=== PATIENT | female | born 1985 | race Caucasian/White ===

== ENCOUNTER 2017-02-11 23:58 | Emergency (ER) | payer BC ==
--- NOTE | 2017-02-12 01:40 | ED ORDER SUMMARY ---
..... Patient: NITISH GRACE OrderSheet [facility] VisitID: [id number] [address] [place] [address] 31y, F Registration Date/Time: 02/11/2017 ORDER SHEET Weight: 104.3 kg (stated) Allergies: Penicillin GENERAL ORDERS: MEDICATION ORDERS: Bactrim DS PO (Tablet 800-160 mg) 2 tabs (NOW) (:02/12/2017 Du HARRIS) (Ack 1:40 JDeElena R.N.) (1:42 JDeElena R.N.) Tylenol PO 650 mg (NOW) (:02/12/2017 Du HARRIS) (Ack 1:40 JDeElena R.N.) (1:42 JDeElena R.N.) IV FLUIDS: ORDER SHEET NOTES: [Electronically signed by Rica Gillespie (04:31 02/12/2017)] [Electronically signed by Kaiser Hill MD (23:39 02/14/2017)] [Electronically locked/signed by Rica Gillespie (04:02/12/2017)]
--- NOTE | 2017-02-12 01:40 | ED NURSING NOTES ---
Clinical Report - Nurses [facility] [address] [place] [address] 02/11/2017 23:59 [id number] Triage time 00:Feb 12 2017. Acuity: LEVEL 4. Chief Complaint: Location of symptoms- left 5th toe. SEPSIS SCREEN: Sepsis Screen: negative. Infection suspected/documented. DARIO COMA SCORE: [place] Coma Scale: 15- eyes open spontaneously (4); best verbal response- oriented x 4 (5); best motor response- obeys commands (6). --00:20 Rica Gillespie 00:16 02/12/17. BP: 119/63. HR: 84. RR: 18. O2 saturation: 100% on room air. Temp: 99.1 F (oral). Pain level now: 510. --00:20 Rica Gillespie. Weight: 104.3 kg stated. Height/Length: 63 inches Per Patient. BMI: 40.7. --00:17 Rica Gillespie. Medications Control Pills. --00:17 Rica Gillespie. Medication/allergy information source: the patient. --00:20 Rica Gillespie. Allergies Penicillin. --00:17 Rica Gillespie. History Arrived by private vehicle. Historian: patient. Unaccompanied. Primary physician (Carlos barnett). No injury occurred. This occurred today. ( Patient reports while she was walking around today she began having pain in her left 5th toe. She states when she got home today she looked at it and it was swollen, red and painful. She states she picked at the toenail earlier this week. She noticed a red line leaving the toe and traveling up her foot so she came in to be seen.). PAST MEDICAL HX: Tetanus status: unknown. Immunizations: up-to-date. Last normal menstrual period- 2 weeks ago. SOCIAL HX: Never smoker. Occasional alcohol use. No drug use. No infectious disease exposure. FALL RISK ASSESSMENT: Fall risk assessment completed. No fall risk identified. NUTRITIONAL RISK ASSESSMENT: The nutritional risk assessment revealed no deficiencies. FUNCTIONAL ASSESSMENT: Functional assessment: no impairments noted. LEARNING NEEDS ASSESSMENT: The learning needs assessment revealed no barriers. SKIN INTEGRITY ASSESSMENT: Skin integrity risk assessment completed. No skin integrity risk identified. --00:20 Rica Gillespie. PROBLEMS: Sleep Apnea. Gastroesophageal Reflux Disease. --00:17 Rica Gillespie. ADDITIONAL SURGERIES: Cholecystectomy. Right foot surgery . --00: Rica Gillespie. Interventions ID band on patient. To treatment room. --00:20 Rica Gillespie. PHYSICAL ASSESSMENT GENERAL / NEURO / PSYCH: Oriented X 4. Alert. Appears in no acute distress. EXTREMITIES: Extremity pulses are within normal limits. Extremities exhibit normal ROM. No lower extremity edema. Left foot: tenderness, swelling and erythema of the fifth toe. Limited weight bearing secondary to pain. SKIN: Skin intact. Skin is warm and dry. --00: Rica Gillespie. NURSING PROGRESS NOTES 00:21 02/12/17. Extremity elevated. Reassurance given to the patient. Two patient identifiers checked. Call light placed in reach. Side rails up x 1. Bed placed in lowest position. Brakes of bed on. Patient ready for evaluation- chart flagged and ED physician notified. --00: Rica Gillespie 01:42 02/12/2017 Bactrim DS (Sulfamethoxazole-TMP DS) PO Tablets 2 tab given. Allergies verified and confirmed 5 rights. --01:42 Tavo Fontenot R.N. 01:42 02/12/2017 Tylenol (Acetaminophen) PO Tablets 650 mg given. Allergies verified and confirmed 5 rights. --01:42 Tavo Fontenot R.N. DISPOSITION / DISCHARGE 02:32 02/12/17. No learning barriers present. Discharge instructions provided and reviewed with the patient. Reviewed medication(s). Treatments reviewed. Patient verbalized understanding. Written instructions provided in [place]. The patient was discharged home. She left the Emergency Department ambulatory and via private vehicle. Patient driving. --02:32 Kiana Caban R.N. 02:31 02/12/17. BP: 108/58. HR: 68. RR: 16. O2 saturation: 98%. Temp: deferred. Pain level now: 0/10. --02:32 Kiana Caban R.N. Locked/Released at 02/12/2017 4:31 by Rica Gillespie,
--- NOTE | 2017-02-12 01:40 | ED ORDER SUMMARY ---
..... Patient: NITISH GRACE OrderSheet [facility] VisitID: [id number] [address] [place] [address] 31y, F Registration Date/Time: 02/11/2017 ORDER SHEET Weight: 104.3 kg (stated) Allergies: Penicillin GENERAL ORDERS: MEDICATION ORDERS: Bactrim DS PO (Tablet 800-160 mg) 2 tabs (NOW) (:02/12/2017 Du HARRIS) (Ack 1:40 JDeElena R.N.) (1:42 JDeElena R.N.) Tylenol PO 650 mg (NOW) (:02/12/2017 Du HARRIS) (Ack 1:40 JDeElena R.N.) (1:42 JDeElena R.N.) IV FLUIDS: ORDER SHEET NOTES: [Electronically signed by Rica Gillespie (04:31 02/12/2017)] [Electronically signed by Kaiser Hill MD (23:39 02/14/2017)] [Electronically locked/signed by Rica Gillespie (04:02/12/2017)]
--- NOTE | 2017-02-12 01:40 | ED CLINICAL REPORT ---
Clinical Report - Physicians/Mid Levels [facility] [address] [place] [address] 02/11/2017 23:59 [id number] Time Seen: 01:07 Feb 12 2017. Arrived- By private vehicle. Historian- patient. HISTORY OF PRESENT ILLNESS Chief Complaint: LOWER EXTREMITY PAIN and SWELLING. Severity is described as being moderate. The quality is noted to be sharp, aching and "pain". This started yesterday and is still present (( Patient reports while she was walking around today she began having pain in her left 5th toe. She states when she got home today she looked at it and it was swollen, red and painful. She states she picked at the toenail earlier this week. She noticed a red line leaving the toe and traveling up her foot so she came in to be seen.).). Symptoms located in the area of the left foot. The patient has had redness and swelling. She has had difficulty walking. No bladder dysfunction, bowel dysfunction, sensory loss or motor loss. Patient notes the possibility of an injury. Mechanism of injury- (cut toenail.). Similar symptoms previously: None. Recent medical care: Not recently seen/assessed. REVIEW OF SYSTEMS No cough, chest pain, fever, enlarged lymph nodes or sore throat. No abdominal pain or vomiting. She has had skin rash. PAST HISTORY See nurses notes. ( Sleep Apnea. Gastroesophageal Reflux Disease. ADDITIONAL SURGERIES: Cholecystectomy. Right foot surgery .). Medications: Control Pills. Allergies: Penicillin. SOCIAL HISTORY Never smoker. Occasional alcohol use. No drug use. ADDITIONAL NOTES The nursing notes have been reviewed. PHYSICAL EXAM Vital Signs: 02/12/2017 00:16 BP: 119/63. HR: 84. RR: 18. O2 saturation: 100%. Temp: 99.1 F. Pain level now: 5/10. Appearance: Alert. Patient in mild distress. CVS: Normal heart rate and rhythm. Heart sounds normal. No cardiac murmur. Respiratory: No respiratory distress. Skin: Skin intact. Skin warm. Extremities: Left foot: moderate erythema and tenderness and mild swelling of the fifth toe. Limited weight bearing secondary to pain. Neurovascular intact distally. Neuro: Oriented X 3. No motor deficit. No sensory deficit. PROGRESS AND PROCEDURES PROCEDURES (Paronychia released with 18g needle.Moderate purulent material drained.). Patient/family counseled. Disposition: Discharged. Condition: stable and improved. CLINICAL IMPRESSION Paronychia left 5th toe. Acute lymphangitis left foot. INSTRUCTIONS Warm soaks to affected area (3-6 times daily for 15-20 minutes at a time) for one weeks until better; (twice a day.). Protect wound and keep wound area clean. Change dressing twice daily. Soak in warm soapy water twice daily. Apply neosporin twice daily. Warnings: Further evaluation is necessary. GENERAL WARNINGS: Return or contact your physician immediately if your condition worsens or changes unexpectedly, if not improving as expected, or if other problems arise. Your Current Medications: CONTINUE TAKING THE FOLLOWING MEDICATIONS: Control Pills*. Prescription Medications: Trimethoprim-Sulfamethoxazole DS: take 1 tablet orally every 12 hours for 7 days. Dispense fourteen (14). No refills. Follow-up: Follow up with your doctor in one week. Call for an appointment. Understanding of the discharge instructions verbalized by patient. (Electronically signed by Kaiser Hill MD 02/14/2017 23:39)
--- NOTE | 2017-02-14 23:40 | ED MED RECONCILIATION SUMMARY ---
Patient: RADHA GRACEVANNESA Mireles Medication Reconciliation Report [facility] VisitID: [id number] [address] [place] [address] 31y, F Registration Date/Time: 02/11/2017 Weight: 104.3 kg Height/Length: 63 in. BMI: 40.7 ALLERGIES: Penicillin The patient's Home Medications are listed below: CONTINUE TAKING THE FOLLOWING MEDICATIONS: Control Pills The source(s) of the original Home Medication information: patient The following Medications were given to the patient in the Emergency Department: Bactrim DS [PO] PO 2 tab, administered: 02/12/2017 1:42:00 AM Tylenol [PO] PO 650 mg, administered: 02/12/2017 1:42:00 AM The following Medications were prescribed to the patient: Trimethoprim-Sulfamethoxazole DS: take 1 tablet orally every 12 hours for 7 days. Dispense fourteen (14). No refills. -- Kaiser Hill MD
--- NOTE | 2017-02-14 23:40 | ED MED RECONCILIATION SUMMARY ---
Patient: RADHA GRACEVANNESA Mireles Medication Reconciliation Report [facility] VisitID: [id number] [address] [place] [address] 31y, F Registration Date/Time: 02/11/2017 Weight: 104.3 kg Height/Length: 63 in. BMI: 40.7 ALLERGIES: Penicillin The patient's Home Medications are listed below: CONTINUE TAKING THE FOLLOWING MEDICATIONS: Control Pills The source(s) of the original Home Medication information: patient The following Medications were given to the patient in the Emergency Department: Bactrim DS [PO] PO 2 tab, administered: 02/12/2017 1:42:00 AM Tylenol [PO] PO 650 mg, administered: 02/12/2017 1:42:00 AM The following Medications were prescribed to the patient: Trimethoprim-Sulfamethoxazole DS: take 1 tablet orally every 12 hours for 7 days. Dispense fourteen (14). No refills. -- Kaiser Hill MD
--- NOTE | 2017-02-14 23:40 | ED MAR SUMMARY ---
..... Medication Administration Record [facility] [address] [place] [address] Patient: NITISH GRACE Visit ID: [id number] 31y, F Weight: 104.3 kg Height/Length: 63 in BMI: 40.7 ALLERGIES: Penicillin Given 01:02/12/2017 Tavo Fontenot, R.N. Medication Administered: BACTRIM DS [PO] (SULFAMETHOXAZOLE-TMP DS), Dose: 2 tab Tablets PO. Medication Ordered: Bactrim DS PO (Tablet 800-160 mg) 2 tabs (NOW). Given :02/12/2017 Tavo Fontenot, R.N. Medication Administered: TYLENOL [PO] (ACETAMINOPHEN), Dose: 650 mg Tablets PO. Medication Ordered: Tylenol PO 650 mg (NOW).
--- NOTE | 2017-02-14 23:40 | ED DISCHARGE INSTRUCTIONS ---
Patient: NITISH GRACE General Instructions [facility] VisitID: [id number] [place] [address] 31y, F Registration Date/Time: 02/11/2017 Paronychia left 5th toe. Acute lymphangitis left foot. INSTRUCTIONS Warm soaks to affected area (3-6 times daily for 15-20 minutes at a time) for one weeks until better; (twice a day.). Protect wound and keep wound area clean. Change dressing twice daily. Soak in warm soapy water twice daily. Apply neosporin twice daily. Warnings: Further evaluation is necessary. GENERAL WARNINGS: Return or contact your physician immediately if your condition worsens or changes unexpectedly, if not improving as expected, or if other problems arise. Your Current Medications: CONTINUE TAKING THE FOLLOWING MEDICATIONS: Control Pills*. Prescription Medications: Trimethoprim-Sulfamethoxazole DS: take 1 tablet orally every 12 hours for 7 days. Dispense fourteen (14). No refills. Follow-up: Follow up with your doctor in one week. Call for an appointment. Understanding of the discharge instructions verbalized by patient. ADDITIONAL INFORMATION Paronychia, Finger Or Toe Paronychia is an infection alongside the fingernail or toenail. It usually occurs from an opening in the cuticle or an ingrown toenail which lets bacteria under the skin. If there is pus present, the infection will need to be drained. If the infection is early, antibiotic treatment alone may be all that you need. Healing will take about 12 weeks. Home care The following guidelines will help you care for your wound at home: Twice a day for the first three days, clean and soak the toe or finger as follows: Soak your foot or hand in a tub of warm water for five minutes. Or, hold your toe or finger under a faucet of warm running water for five minutes. Clean any remaining crust away with soap and water using a cotton-tipped applicator. Apply antibiotic ointment to the infected area. Change the dressing daily or whenever it becomes soiled. If you were prescribed antibiotics, take them as directed until they are all gone. If your infection is on a toe, wear comfortable shoes with a lot of toe room, or open-toe sandals, while your toe is healing. You may use acetaminophen or ibuprofen to control pain, unless another medicine was prescribed.If you have chronic liver or kidney disease or ever had a stomach ulcer or GI bleeding, talk with your doctor before using these medicines. Follow-up care Follow up with your doctor or this facility as explained by our staff. When to seek medical care Get prompt medical attention if any of the following occur: Increasing redness, pain or swelling of the finger or toe Red streaks in the skin leading away from the wound Pus or fluid drainage Fever of 100.4F (38C) or higher, or as directed by your health care provider You have been given the following additional information: Paronychia (Electronically signed by Kaiser Hill MD 02/14/2017 23:39)
--- NOTE | 2017-02-14 23:40 | ED MAR SUMMARY ---
..... Medication Administration Record [facility] [address] [place] [address] Patient: NITISH GRACE Visit ID: [id number] 31y, F Weight: 104.3 kg Height/Length: 63 in BMI: 40.7 ALLERGIES: Penicillin Given 01:02/12/2017 Tavo Fontenot, R.N. Medication Administered: BACTRIM DS [PO] (SULFAMETHOXAZOLE-TMP DS), Dose: 2 tab Tablets PO. Medication Ordered: Bactrim DS PO (Tablet 800-160 mg) 2 tabs (NOW). Given :02/12/2017 Tavo Fontenot, R.N. Medication Administered: TYLENOL [PO] (ACETAMINOPHEN), Dose: 650 mg Tablets PO. Medication Ordered: Tylenol PO 650 mg (NOW).
== END 2017-02-12 02:30 | disposition home or self-care (01) ==
LOC: ED SRH 23:58
PROC: 0H9NXZZ Drainage of Left Foot Skin, External Approach (ICD-10-PCS; principal; 2017-02-12)
DX: L03.032 Cellulitis of left toe (principal); L03.126 Acute lymphangitis of left lower limb; K21.9 Gastro-esophageal reflux disease without esophagitis; Z88.0 Allergy status to penicillin